=== PATIENT | male | born 1950 | race Caucasian/White ===

== ENCOUNTER 2019-05-21 05:09 | Inpatient (IN) | payer MEDICARE ==
[~2019-05-21] VITALS: Ht 175.3 cm; Wt 86.0 kg
[2019-05-21] MEDS ORDERED: ATOR40TA PO (05:49)
[2019-05-21] MEDS ORDERED: SERT25TA PO (05:49)
[2019-05-21] MEDS ORDERED: PANT40TA4 PO (05:49)
[2019-05-21] MEDS ORDERED: UMEC1DIS INH (05:49)
[2019-05-21] MEDS ORDERED: acetaminophen 325mg tablet PO ONE (05:50)
[2019-05-21] MEDS ORDERED: normal saline 1000ml 1,000 ML IV ONE (05:50)
[2019-05-21 05:56] LABS: BASOPHILS % (AUTO) 0.3 % (0-1); EOSINOPHILS # (AUTO) 0.1 X10'3 (0-0.9); EOSINOPHILS % (AUTO) 1.3 % (0-6); HEMATOCRIT 41.1 % (42.0-52.0); HEMOGLOBIN 13.8 g/dl (14.0-17.9); LYMPHOCYTES # (AUTO) 0.3 X10'3 (1.1-4.8); LYMPHOCYTES % (AUTO) 6.5 % (21-51); MEAN CORPUSCULAR HEMOGLOBIN 31.1 PG (27.0-31.0); MEAN CORPUSCULAR HGB CONC 33.5 g/dL (33.0-36.5); MEAN CORPUSCULAR VOLUME 92.8 FL (78-98); MEAN PLATELET VOLUME 7.6 FL (7.4-10.4); MONOCYTES # (AUTO) 0.2 X10'3 (0-0.9); MONOCYTES % (AUTO) 3.8 % (2-12); NEUTROPHILS # (AUTO) 3.8 X10'3 (1.8-7.7); NEUTROPHILS % (AUTO) 88.1 % (42-75); PLATELET COUNT 202 X10'3 (140-440); RED BLOOD COUNT 4.43 X10'6 (4.70-6.10); RED CELL DISTRIBUTION WIDTH 15.4 % (11.5-14.5); WHITE BLOOD COUNT 4.3 X10'3 (4.5-11.0)
[2019-05-21 06:46] LABS: BASOPHILS % (AUTO) 0.3 % (0-1); EOSINOPHILS % (AUTO) 0.7 % (0-6); HEMATOCRIT 34.2 % (42.0-52.0); HEMOGLOBIN 11.5 g/dl (14.0-17.9); LYMPHOCYTES # (AUTO) 0.1 X10'3 (1.1-4.8); LYMPHOCYTES % (AUTO) 3.7 % (21-51); MEAN CORPUSCULAR HGB CONC 33.7 g/dL (33.0-36.5); MEAN CORPUSCULAR VOLUME 92.1 FL (78-98); MEAN PLATELET VOLUME 6.7 FL (7.4-10.4); MONOCYTES # (AUTO) 0.2 X10'3 (0-0.9); NEUTROPHILS # (AUTO) 3.5 X10'3 (1.8-7.7); NEUTROPHILS % (AUTO) 90.3 % (42-75); PLATELET COUNT 149 X10'3 (140-440); RED BLOOD COUNT 3.72 X10'6 (4.70-6.10); RED CELL DISTRIBUTION WIDTH 15.3 % (11.5-14.5); WHITE BLOOD COUNT 3.8 X10'3 (4.5-11.0)
[2019-05-21 07:00] LABS: PARTIAL THROMBOPLASTIN TIME 25 SECONDS (22-32)
[2019-05-21 07:07] LABS: ALANINE AMINOTRANSFERASE 40 U/L (12-78); ALBUMIN 3.2 G/DL (3.4-5.0); ALBUMIN/GLOBULIN RATIO 1.1 (1.1-1.5); ALKALINE PHOSPHATASE 133 IU/L (46-116); ANION GAP 9 (8-16); ASPARTATE AMINO TRANSFERASE 25 U/L (10-37); BILIRUBIN,TOTAL 0.8 MG/DL (0.1-1.0); BLOOD UREA NITROGEN 38 MG/DL (7-18); BUN/CREATININE RATIO 29.2 (5.4-32.0); CALCIUM 8.7 MG/DL (8.5-10.1); CHLORIDE 111 MMOL/L (99-107); GLUCOSE 107 MG/DL (70-104); POTASSIUM 4.5 MMOL/L (3.5-5.1); SODIUM 141 MMOL/L (135-145); TOTAL CARBON DIOXIDE 21.5 MMOL/L (24-32); TOTAL PROTEIN 6.1 G/DL (6.4-8.2); eGFR 55 ML/MIN
[2019-05-21] MEDS ORDERED: azithromycin/NS 500mg/250ml 250 ML IV ONE (07:20)
[2019-05-21] MEDS ORDERED: CefTRIAXone/D5W-Rocephin 1gm 50 ML IV ONE (07:20)
[2019-05-21 07:40] LABS: D-DIMER 0.69 MG/L FEU (0-0.50)
[2019-05-21] MEDS ORDERED: iohexol 350MG/ML 100ml bottle IV ONE (07:50)
[2019-05-21] MEDS ORDERED: HYDROcodone/acetaminophen 5mg/325mg tablet PO PRN (09:50)
[2019-05-21] MEDS ORDERED: magnesium 2GM in 50ml NS 50 ML IV PRN (09:50)
[2019-05-21] MEDS ORDERED: morphine 2 MG/ML inj. syringe IV PRN (09:50)
[2019-05-21] MEDS ORDERED: potassium CL 10mEq/100ml bag 100 ML IV PRN ×2 (09:50)
[2019-05-21] MEDS ORDERED: magnesium hydroxide 30ml (MOM) UD suspension PO PRN (09:50)
[2019-05-21] MEDS ORDERED: ondansetron/PF 4mg/2ml inj IV PRN (09:50)
[2019-05-21] MEDS ORDERED: acetaminophen 325mg tablet PO PRN (09:50)
[2019-05-21] MEDS ORDERED: potassium Cl 20 mEq SR tablet PO PRN ×2 (09:50)
[2019-05-21] MEDS ORDERED: magnesium Cl slow-release 64mg tablet PO PRN (09:50)
[2019-05-21] MEDS ORDERED: mag hydrox/Alum hydrox/simeth 30ml oral suspension PO PRN (09:50)
[2019-05-21] MEDS ORDERED: magnesium 4gm in 100ml NS 100 ML IV PRN (09:50)
[2019-05-21] MEDS ORDERED: GABA-532 PO (11:10)
[2019-05-21] MEDS ORDERED: PYRI50TA13 PO (11:13)
--- NOTE | 2019-05-21 12:30 | NUR ---
Patient in room PCU 3012. I have received report from Serene and had the opportunity to ask questions and assume patient care. Patient hooked up to tele monitored, oriented to new environment and vital signs obtained. Call light given to patient, he is in stable condition upon arrival.
[2019-05-21] MEDS: normal saline 1000ml 1,000 ML IV SCH ×3 (12:31→22:05)
[2019-05-21 13:00] VITALS: BP 103/64
[2019-05-21] MEDS ORDERED: SERT100T PO (14:30)
[2019-05-21 15:00] VITALS: BP 133/81
--- NOTE | 2019-05-21 18:30 | NUR ---
Problems reprioritized. Patient report given, questions answered & plan of care reviewed with
[2019-05-21] MEDS: heparin, porcine 5000 units/ml vial SQ SCH (19:27)
[2019-05-21] MEDS ORDERED: gabapentin 300mg capsule PO SCH (21:00)
[2019-05-21] MEDS ORDERED: temazepam 15mg capsule PO PRN (21:00)
[2019-05-21 22:00] VITALS: BP 117/58
[2019-05-22 02:00] VITALS: BP 112/72
[2019-05-22 04:47] LABS: BASOPHILS % (AUTO) 0.2 % (0-1); EOSINOPHILS # (AUTO) 0.1 X10'3 (0-0.9); EOSINOPHILS % (AUTO) 1.3 % (0-6); HEMATOCRIT 32.8 % (42.0-52.0); HEMOGLOBIN 11.3 g/dl (14.0-17.9); LYMPHOCYTES # (AUTO) 0.7 X10'3 (1.1-4.8); LYMPHOCYTES % (AUTO) 8.9 % (21-51); MEAN CORPUSCULAR HEMOGLOBIN 31.6 PG (27.0-31.0); MEAN CORPUSCULAR HGB CONC 34.6 g/dL (33.0-36.5); MEAN CORPUSCULAR VOLUME 91.3 FL (78-98); MEAN PLATELET VOLUME 7.2 FL (7.4-10.4); MONOCYTES # (AUTO) 0.5 X10'3 (0-0.9); MONOCYTES % (AUTO) 6.7 % (2-12); NEUTROPHILS # (AUTO) 6.2 X10'3 (1.8-7.7); NEUTROPHILS % (AUTO) 82.9 % (42-75); PLATELET COUNT 160 X10'3 (140-440); RED BLOOD COUNT 3.59 X10'6 (4.70-6.10); RED CELL DISTRIBUTION WIDTH 14.9 % (11.5-14.5); WHITE BLOOD COUNT 7.5 X10'3 (4.5-11.0)
[2019-05-22 05:16] LABS: ALBUMIN 3.1 G/DL (3.4-5.0); ANION GAP 9 (8-16); BLOOD UREA NITROGEN 36 MG/DL (7-18); CALCIUM 8.9 MG/DL (8.5-10.1); CHLORIDE 110 MMOL/L (99-107); CREATININE 1.44 MG/DL (0.60-1.10); GLUCOSE 103 MG/DL (70-104); MAGNESIUM 1.7 MG/DL (1.5-2.4); PHOSPHORUS 2.3 MG/DL (2.3-4.5); POTASSIUM 4.3 MMOL/L (3.5-5.1); SODIUM 141 MMOL/L (135-145); TOTAL CARBON DIOXIDE 21.6 MMOL/L (24-32); eGFR 49 ML/MIN
[2019-05-22 06:00] VITALS: BP 131/65
--- NOTE | 2019-05-22 06:00 | NUR ---
Patient in room PCU 3018. I have received report from ELOY Hardwick and had the opportunity to ask questions and assume patient care.
--- NOTE | 2019-05-22 06:01 | NUR ---
[place] documentation: I have reviewed all interventions, assessments performed and documented by Caty LYONS. [place] Medication Administration: For this medication-pass time frame, all medication were reviewed, dispensed, administered and documented per hospital policy by Caty LYONS.
--- NOTE | 2019-05-22 06:25 | NUR ---
Problems reprioritized. Patient report given, questions answered & plan of care reviewed with Millie LYONS.
[2019-05-22] MEDS: normal saline 1000ml 1,000 ML IV SCH (07:54)
--- NOTE | 2019-05-22 07:58 | NUR ---
Per primary RN request, AM dose of Rocephin administered at this time per MD order.
[2019-05-22] MEDS ORDERED: Umeclidinium Brm/Vilanterol Tr (Anoro Ellipta 62.5-25 Mcg INH) IH SCH (08:00)
[2019-05-22] MEDS ORDERED: pantoprazole 40mg Tablet.DR PO SCH (08:00)
[2019-05-22] MEDS ORDERED: sertraline 50mg tablet PO SCH (08:00)
[2019-05-22] MEDS ORDERED: CefTRIAXone/D5W-Rocephin 1gm 50 ML IV SCH (08:00)
[2019-05-22] MEDS ORDERED: atorvastatin 20mg tablet PO SCH (08:00)
[2019-05-22] MEDS ORDERED: azithromycin/NS 500mg/250ml 250 ML IV SCH (08:00)
[2019-05-22] MEDS ORDERED: pyridoxine 50mg tablet PO SCH (08:00)
[2019-05-22] MEDS: heparin, porcine 5000 units/ml vial SQ SCH (08:21)
--- NOTE | 2019-05-22 10:04 | NUR ---
Pt discharged to home in private car with , he was taken to curbside with all belongings, discharge papers reviewed and signed with pt.
== END 2019-05-22 10:09 | disposition home or self-care (01) | DRG 871 ==
LOC: ER 05:10 → ED HOLD 10:31 → PCU 3S 12:30
PROVIDERS: ADMIT Internal Medicine Critical Care Medicine; ATTEND Internal Medicine Critical Care Medicine
DX: A41.9 Sepsis, unspecified organism (principal); J18.9 Pneumonia, unspecified organism; Z94.0 Kidney transplant status; M19.90 Unspecified osteoarthritis, unspecified site; N18.3 Chronic kidney disease, stage 3 (moderate); E78.00 Pure hypercholesterolemia, unspecified; G89.29 Other chronic pain; T38.0X5A Adverse effect of glucocorticoids and synthetic analogues, initial encounter; I12.9 Hypertensive chronic kidney disease with stage 1 through stage 4 chronic kidney disease, or unspecified chronic kidney disease; E66.9 Obesity, unspecified; Z85.72 Personal history of non-Hodgkin lymphomas; Z86.73 Personal history of transient ischemic attack (TIA), and cerebral infarction without residual deficits; Z88.8 Allergy status to other drugs, medicaments and biological substances; Z79.899 Other long term (current) drug therapy; Z68.28 Body mass index [BMI] 28.0-28.9, adult; Y92.89 Other specified places as the place of occurrence of the external cause
CPT/HCPCS: 36415; 71045; 80048; 80053; 83605; 83735; 84100; 84145; 84484; 85025; 85379; 85610; 85730; 87040; 87081; 93005; 93306; 96361; 96365; 96368; 99285; G0378; J0456; J0696; J1644; J7030; Q9967

== ENCOUNTER 2019-06-05 15:26 | Emergency (ER) | payer MEDICARE ==
[~2019-06-05] VITALS: Ht 171.4 cm; Wt 91.4 kg
[~2019-06-05 15:26] MED LIST: ATOR40TA PO; GABA-532 PO; PANT40TA4 PO; PYRI50TA13 PO; SERT100T PO; UMEC1DIS INH
[2019-06-05 15:48] VITALS: BP 135/93
[2019-06-05] MEDS ORDERED: HYDROcodone/acetaminophen 5mg/325mg tablet PO ONE (16:25)
[2019-06-05] MEDS ORDERED: HYDR-3965 PO (16:38)
[2019-06-05] MEDS ORDERED: DIPH28CR3 TOP (16:38)
== END 2019-06-05 16:57 | disposition home or self-care (01) ==
LOC: ER 15:27
DX: B02.9 Zoster without complications (principal); E78.00 Pure hypercholesterolemia, unspecified; I10 Essential (primary) hypertension; G89.29 Other chronic pain; Z86.73 Personal history of transient ischemic attack (TIA), and cerebral infarction without residual deficits; Z98.890 Other specified postprocedural states; Z94.0 Kidney transplant status; Z88.8 Allergy status to other drugs, medicaments and biological substances; Z79.899 Other long term (current) drug therapy
CPT/HCPCS: 99283